=== PATIENT | female | born 1980 | race Caucasian/White ===

== ENCOUNTER 2019-04-04 07:16 | Inpatient (IN) ==
[2019-04-04 07:55] LABS: Basophils % 0.3 %; Eosinophils # 0.1 K/mcL (0.0-0.6); Eosinophils % 1.1 %; Hematocrit 37.9 % (35.3-44.9); Hemoglobin 13.2 g/dL (11.5-15.4); Immature Granulocytes % 0.6 % (0-4); Lymphocytes # 2.2 K/mcL (0.6-4.6); Lymphocytes % 18.8 %; Mean Corpuscular HGB Conc 34.8 g/dL (31.6-35.5); Mean Corpuscular Hemoglobin 30.6 pg (28.0-33.3); Mean Corpuscular Volume 87.7 fL (83.0-100.0); Mean Platelet Volume 10.3 fL (9.4-12.4); Monocytes # 0.6 K/mcL (0.0-1.3); Monocytes % 4.7 %; Neutrophils # 8.9 K/mcL (1.6-8.9); Platelet Count 274 K/mcL (140-400); Red Blood Count 4.32 M/mcL (3.82-4.97); Red Cell Distribution Width 13.3 % (11.5-14.5); Segmented Neutrophils % 74.5 %; White Blood Count 11.9 K/mcL (4.3-11.1)
[2019-04-04 08:07] LABS: BUN/Creatinine Ratio 19 (6-26); Blood Urea Nitrogen 12 mg/dL (6-20); Carbon Dioxide 28 mEq/L (23-29); Chloride 102 mEq/L (98-107); Glucose 137 mg/dL (70-105); Osmolality,Calculated 294 (280-300); Potassium 3.5 mEq/L (3.5-5.1); Sodium 141 mEq/L (136-145); Troponin I 0.04 ng/mL (< 0.04); eGFR For African Americans > 60 (> 60); eGFR For Non-African Americans > 60 (> 60)
[2019-04-04] MEDS ORDERED: Aspirin 325 MG TABLET PO ONE (08:07)
[2019-04-04] MEDS ORDERED: 0.9 % Sodium Chloride 1,000 ML IVC ONE (08:17)
[2019-04-04] MEDS ORDERED: Isovue-370 500 ML BOTTLE IVP ONE (08:17)
[2019-04-04] MEDS ORDERED: Azithromycin 500 MG in 0.9 % Sodium Chloride 250 ML IVPB ONE (09:03)
[2019-04-04] MEDS ORDERED: cefTRIAXone 1,000 MG in Water for inj. (sterile) 10 ML IVP ONE (09:03)
[2019-04-04] MEDS ORDERED: Ondansetron 4 MG/2 ML VIAL IVP ONE (09:19)
[2019-04-04] MEDS ORDERED: Naloxone 0.4 MG/ML INJ IVP PRN (09:40)
[2019-04-04] MEDS ORDERED: Perflutren Lipid Microsphere 1.3 ML in 0.9 % Sodium Chloride 8.7 ML IVP ONE (11:25)
[2019-04-04] MEDS: *HR* Heparin 5,000 UNIT/ML VIAL SQ SCH ×2 (13:56→20:43)
[2019-04-04] MEDS: Spironolactone 25 MG TABLET PO SCH (13:56)
[2019-04-04] MEDS: Furosemide 40 MG/4 ML VIAL IVP SCH ×2 (13:56→18:19)
[2019-04-04] MEDS ORDERED: Methyl Salicylate/Menthol 28 GM TUBE TP PRN (13:57)
[2019-04-04] MEDS: Methyl Salicylate/Menthol 57 APPL/57 GM TUBE TP PRN ×2 (15:19→18:20)
[2019-04-04] MEDS: Acetaminophen 325 MG TABLET PO PRN (18:37)
[2019-04-05 04:37] LABS: Basophils % 0.5 %; Eosinophils # 0.1 K/mcL (0.0-0.6); Eosinophils % 1.3 %; Hematocrit 35.6 % (35.3-44.9); Immature Granulocytes % 0.3 % (0-4); Lymphocytes # 2.6 K/mcL (0.6-4.6); Lymphocytes % 29.4 %; Mean Corpuscular HGB Conc 33.7 g/dL (31.6-35.5); Mean Corpuscular Hemoglobin 29.8 pg (28.0-33.3); Mean Corpuscular Volume 88.3 fL (83.0-100.0); Mean Platelet Volume 10.5 fL (9.4-12.4); Monocytes # 0.5 K/mcL (0.0-1.3); Monocytes % 5.3 %; Neutrophils # 5.5 K/mcL (1.6-8.9); Platelet Count 243 K/mcL (140-400); Red Blood Count 4.03 M/mcL (3.82-4.97); Red Cell Distribution Width 13.4 % (11.5-14.5); Segmented Neutrophils % 63.2 %; White Blood Count 8.7 K/mcL (4.3-11.1)
[2019-04-05 04:55] LABS: BUN/Creatinine Ratio 16 (6-26); Blood Urea Nitrogen 14 mg/dL (6-20); Calcium 8.9 mg/dL (8.6-10.3); Carbon Dioxide 30 mEq/L (23-29); Chloride 107 mEq/L (98-107); Glucose 111 mg/dL (70-105); Osmolality,Calculated 299 (280-300); Potassium 3.5 mEq/L (3.5-5.1); Sodium 144 mEq/L (136-145); eGFR For African Americans > 60 (> 60); eGFR For Non-African Americans > 60 (> 60)
[2019-04-05] MEDS: *HR* Heparin 5,000 UNIT/ML VIAL SQ SCH ×3 (05:16→21:10)
[2019-04-05] MEDS: Lisinopril 20 MG TABLET PO SCH (08:36)
[2019-04-05] MEDS: Furosemide 40 MG/4 ML VIAL IVP SCH ×2 (08:36→17:27)
[2019-04-05] MEDS: Spironolactone 25 MG TABLET PO SCH (08:36)
[2019-04-05] MEDS ORDERED: cefTRIAXone 1,000 MG in Water for inj. (sterile) 10 ML IVP SCH (09:00)
[2019-04-05] MEDS ORDERED: Azithromycin 500 MG in 0.9 % Sodium Chloride 250 ML IVPB SCH (10:00)
[2019-04-05] MEDS ORDERED: Dextrose Gel 15 GM/37.5 ML TUBE PO PRN ×2 (12:58)
[2019-04-05] MEDS ORDERED: *HR* Dextrose 50 % in Water (Syg) 50 ML SYRINGE IVP PRN (12:58)
[2019-04-05] MEDS ORDERED: D5% in Water 1,000 ML IVC PRN (12:58)
[2019-04-05 13:40] LABS: Estimated Average Glucose 97 mg/dl
[2019-04-05] MEDS: Aspirin 81 MG TAB.CHEW PO SCH (14:53)
[2019-04-05] MEDS ORDERED: Insulin LISPRO 300 UNITS/3 ML VIAL SQ SCH ×2 (16:30→21:00)
[2019-04-06] MEDS: *HR* Heparin 5,000 UNIT/ML VIAL SQ SCH ×3 (05:13→19:45)
[2019-04-06 05:55] LABS: BUN/Creatinine Ratio 25 (6-26); Blood Urea Nitrogen 20 mg/dL (6-20); Calcium 9.3 mg/dL (8.6-10.3); Carbon Dioxide 33 mEq/L (23-29); Chloride 99 mEq/L (98-107); Glucose 100 mg/dL (70-105); Osmolality,Calculated 301 (280-300); Potassium 3.5 mEq/L (3.5-5.1); Sodium 144 mEq/L (136-145); eGFR For African Americans > 60 (> 60); eGFR For Non-African Americans > 60 (> 60)
[2019-04-06] MEDS: Lisinopril 20 MG TABLET PO SCH (07:42)
[2019-04-06] MEDS: Spironolactone 25 MG TABLET PO SCH (07:43)
[2019-04-06] MEDS: Aspirin 81 MG TAB.CHEW PO SCH (07:43)
[2019-04-06] MEDS: Furosemide 40 MG/4 ML VIAL IVP SCH ×2 (07:44→16:27)
[2019-04-06 15:23] LABS: Albumin 4.2 g/dL (3.5-5.7); Albumin/Globulin Ratio 1.4 (1.1-2.2); Bilirubin,Direct 0.1 mg/dL (0.0-0.2); Bilirubin,Indirect 0.7 mg/dL (0.0-1.0); Bilirubin,Total 0.8 mg/dL (0.3-1.0); Globulin 2.9 g/dL (2.4-3.5); Total Protein 7.1 g/dL (6.4-8.9)
[2019-04-06 16:16] LABS: Bacteria,Urine None Seen per hpf (None-Few); Bilirubin,Urine Negative (Negative); Blood,Urine Negative (Negative); Clarity,Urine Cloudy (Clear); Color,Urine Yellow (Yellow); Glucose,Urine (UA) Normal (Normal); Hyaline Casts,Urine Few per lpf (None-Few); Ketones,Urine Negative (Negative); Leukocyte Esterase,Urine Trace (Negative); Nitrite,Urine Negative (Negative); Protein,Urine 30 mg/dL (Neg-Trace); Specific Gravity,Urine 1.025 (1.010-1.025); Squamous Epithelial Cell,Urine Many per lpf (None-Few); Urobilinogen,Urine Normal (Normal)
[2019-04-06 16:19] LABS: Protein/Creatinine Ratio,Urine 0.2 mg/mg (0.00-0.20)
[2019-04-07 03:01] LABS: BUN/Creatinine Ratio 24 (6-26); Blood Urea Nitrogen 17 mg/dL (6-20); Calcium 9.5 mg/dL (8.6-10.3); Carbon Dioxide 32 mEq/L (23-29); Chloride 99 mEq/L (98-107); Glucose 87 mg/dL (70-105); Osmolality,Calculated 287 (280-300); Potassium 3.2 mEq/L (3.5-5.1); Sodium 138 mEq/L (136-145); eGFR For African Americans > 60 (> 60); eGFR For Non-African Americans > 60 (> 60)
[2019-04-07 03:02] LABS: Albumin 4.1 g/dL (3.5-5.7); Albumin/Globulin Ratio 1.5 (1.1-2.2); Bilirubin,Direct 0.2 mg/dL (0.0-0.2); Bilirubin,Indirect 0.6 mg/dL (0.0-1.0); Bilirubin,Total 0.8 mg/dL (0.3-1.0); Globulin 2.8 g/dL (2.4-3.5); Total Protein 6.9 g/dL (6.4-8.9)
[2019-04-07] MEDS: *HR* Heparin 5,000 UNIT/ML VIAL SQ SCH ×3 (05:12→20:50)
[2019-04-07] MEDS: Metoprolol XL (24 HR) Succ 25 MG TAB.ER.24H PO SCH (08:16)
[2019-04-07] MEDS: Furosemide 20 MG TABLET PO SCH ×2 (08:16→17:41)
[2019-04-07] MEDS: Spironolactone 25 MG TABLET PO SCH (08:16)
[2019-04-07] MEDS: Lisinopril 20 MG TABLET PO SCH (08:17)
[2019-04-07] MEDS: Aspirin 81 MG TAB.CHEW PO SCH (08:17)
[2019-04-07] MEDS ORDERED: Potassium Citrate 10 MEQ TABLET.ER PO SCH (15:00)
[2019-04-07] MEDS ORDERED: Ipratropium/Albuterol Neb 3 ML IH PRN (16:32)
[2019-04-07] MEDS: Acetaminophen 325 MG TABLET PO PRN (20:50)
[2019-04-08 02:37] LABS: BUN/Creatinine Ratio 29 (6-26); Blood Urea Nitrogen 21 mg/dL (6-20); Calcium 9.3 mg/dL (8.6-10.3); Carbon Dioxide 32 mEq/L (23-29); Chloride 101 mEq/L (98-107); Glucose 130 mg/dL (70-105); Osmolality,Calculated 295 (280-300); Potassium 3.5 mEq/L (3.5-5.1); Sodium 140 mEq/L (136-145); eGFR For African Americans > 60 (> 60); eGFR For Non-African Americans > 60 (> 60)
[2019-04-08] MEDS: *HR* Heparin 5,000 UNIT/ML VIAL SQ SCH ×2 (06:00→16:24)
[2019-04-08] MEDS ORDERED: 0.9 % Sodium Chloride 1,000 ML ONE ×2 (07:46→07:59)
[2019-04-08] MEDS ORDERED: ISOVUE-370 200 ML INFUS..BTL ONE (07:46)
[2019-04-08] MEDS ORDERED: Heparin 1,000 UNITS/500 mL 500 ML ONE (07:46)
[2019-04-08] MEDS ORDERED: *HR* Heparin 10,000 UNIT/10 ML VIAL ONE (07:46)
[2019-04-08] MEDS ORDERED: Nitroglycerin 1,000 MCG/10 ML VIAL IV ONE (07:47)
[2019-04-08] MEDS ORDERED: *HR* FentaNYL (PF) 100 MCG/2 ML VIAL ONE (07:54)
[2019-04-08] MEDS ORDERED: *HR* Midazolam HCl 2 MG/2 ML VIAL ONE (07:54)
[2019-04-08] MEDS: Spironolactone 25 MG TABLET PO SCH (11:53)
[2019-04-08] MEDS: Aspirin 81 MG TAB.CHEW PO SCH (11:53)
[2019-04-08] MEDS: Lisinopril 20 MG TABLET PO SCH (11:54)
[2019-04-08] MEDS: Furosemide 20 MG TABLET PO SCH ×2 (11:54→16:24)
[2019-04-08] MEDS: Metoprolol XL (24 HR) Succ 25 MG TAB.ER.24H PO SCH (11:54)
[2019-04-08 12:05] VITALS: BP 110/72
== END 2019-04-08 16:34 | disposition home or self-care (01) | DRG 287 ==
LOC: 3BNU 07:16 → EMEROOARM 07:16 → 3BNU 10:35 → SUATTDRO 04-05 14:06
PROVIDERS: ADMIT Internal Medicine; ATTEND Internal Medicine

== ENCOUNTER 2020-01-21 21:20 | Observation (INO) ==
[2020-01-21 23:17] LABS: Basophils # 0.1 K/mcL (0.0-0.2); Basophils % 0.5 %; Eosinophils # 0.1 K/mcL (0.0-0.6); Eosinophils % 0.6 %; Hematocrit 42.5 % (35.3-44.9); Hemoglobin 14.2 g/dL (11.5-15.4); Immature Granulocytes % 0.3 % (0-4); Lymphocytes # 2.9 K/mcL (0.6-4.6); Lymphocytes % 26.4 %; Mean Corpuscular HGB Conc 33.4 g/dL (31.6-35.5); Mean Corpuscular Hemoglobin 29.1 pg (28.0-33.3); Mean Corpuscular Volume 87.1 fL (83.0-100.0); Monocytes # 0.5 K/mcL (0.0-1.3); Monocytes % 4.8 %; Neutrophils # 7.4 K/mcL (1.6-8.9); Platelet Count 241 K/mcL (140-400); Red Blood Count 4.88 M/mcL (3.82-4.97); Red Cell Distribution Width 11.9 % (11.5-14.5); Segmented Neutrophils % 67.4 %
[2020-01-21 23:36] LABS: BUN/Creatinine Ratio 15 (6-26); Blood Urea Nitrogen 8 mg/dL (6-20); Calcium 9.5 mg/dL (8.6-10.3); Carbon Dioxide 26 mEq/L (23-29); Chloride 104 mEq/L (98-107); Glucose 93 mg/dL (70-105); Osmolality,Calculated 286 (280-300); Potassium 3.9 mEq/L (3.5-5.1); Sodium 139 mEq/L (136-145); Troponin I < 0.03 ng/mL (< 0.04); eGFR For African Americans > 60 (> 60); eGFR For Non-African Americans > 60 (> 60)
[2020-01-22] MEDS ORDERED: Aspirin 325 MG TABLET PO ONE (00:34)
[2020-01-22] MEDS ORDERED: Naloxone 0.4 MG/ML INJ IVP PRN (01:52)
[2020-01-22 05:18] LABS: Hematocrit 39.1 % (35.3-44.9); Hemoglobin 13.3 g/dL (11.5-15.4); Mean Corpuscular Hemoglobin 29.9 pg (28.0-33.3); Mean Corpuscular Volume 87.9 fL (83.0-100.0); Mean Platelet Volume 9.9 fL (9.4-12.4); Platelet Count 194 K/mcL (140-400); Red Blood Count 4.45 M/mcL (3.82-4.97); Red Cell Distribution Width 12.1 % (11.5-14.5); White Blood Count 9.6 K/mcL (4.3-11.1)
[2020-01-22 05:38] LABS: Chol/HDL Ratio 5.7 (0-4.9)
[2020-01-22 05:40] LABS: BUN/Creatinine Ratio 16 (6-26); Blood Urea Nitrogen 9 mg/dL (6-20); Calcium 9.3 mg/dL (8.6-10.3); Carbon Dioxide 31 mEq/L (23-29); Chloride 103 mEq/L (98-107); Glucose 93 mg/dL (70-105); Osmolality,Calculated 286 (280-300); Phosphorous 3.3 mg/dL (2.7-4.5); Potassium 3.6 mEq/L (3.5-5.1); Sodium 139 mEq/L (136-145); Troponin I < 0.03 ng/mL (< 0.04); eGFR For African Americans > 60 (> 60); eGFR For Non-African Americans > 60 (> 60)
[2020-01-22 09:12] LABS: Estimated Average Glucose 103 mg/dl
[2020-01-22] MEDS ORDERED: Regadenoson 0.4 MG/5 ML SYRINGE IVP ONE (10:31)
[2020-01-22] MEDS ORDERED: Furosemide 20 MG TABLET PO PRN (11:56)
[2020-01-22] MEDS: Metoprolol XL (24 HR) Succ 50 MG TAB.ER.24H PO SCH (13:54)
[2020-01-22] MEDS: Sacubitril/Valsartan 97/103 MG 1 TAB TABLET PO SCH ×2 (15:16→21:18)
[2020-01-22] MEDS ORDERED: Sacubitril/Valsartan 97/103 MG 1 TAB TABLET PO SCH (21:00)
[2020-01-23 08:15] VITALS: BP 133/85
[2020-01-23] MEDS: Sacubitril/Valsartan 97/103 MG 1 TAB TABLET PO SCH (09:34)
[2020-01-23] MEDS: Metoprolol XL (24 HR) Succ 50 MG TAB.ER.24H PO SCH (09:35)
== END 2020-01-23 10:47 | disposition home or self-care (01) ==
LOC: EMEROOARM 21:20 → 3NENU 21:20 → SUATTDRO 01-22 00:56 → 3NENU 01-22 01:15 → 3BNU 01-22 14:52
PROVIDERS: ADMIT Family Medicine; ATTEND Internal Medicine